=== PATIENT | male | born 1965 | race Caucasian/White ===

== ENCOUNTER 2018-03-13 20:02 | Emergency (ER) | payer OTHER ==
--- NOTE | 2018-03-13 21:30 | ED NECK/BACK PAIN COMPLAINT ---
History of Present Illness General Chief Complaint: Low Back Pain/Injury Stated Complaint: LOW BACK PAIN Source: patient Exam Limitations: no limitations Allergies Coded Allergies: No Known Allergies (03/13/18) Triage Note: PT JAIDEN FROM HOME, STATES HE WAS DONIG YARD WORK AND HAD LOW BACK PAIN THAT INCREASED IN INTENSITY, AND HAD TO LAY DOWN. PER EMS PT UNABLE TO AMBULATE FOR THEM. PT'S STATES SHE GAVE PT 1 TAB 500MG ROBAXIN. PT STATES PAIN 10/10 WITH MOVEMENT, AND 3/10 WHEN LAYING STILL Triage Nurses Notes Reviewed? yes Onset: Abrupt Duration: day(s): (1), constant, continues in ED, getting worse Timing: single episode today Quality/Severity: severe, sharpness Location: lumbar spine, paraspinous muscles Radiation: none Context: turning/bending Method of Injury: unknown Loss of Consciousness: no loss of consciousness Modifying Factors: movement Associated Symptoms: lower back pain HPI: 52-year-old male past medical history of hyperlipidemia presents for evaluation of low back pain. Patient states that he had been doing some yardwork moving sticks and branches in his yard today when he started noticing gradually worsening back pain. The pain got to the point where he was unable to move any lay down and is regarding cannot get up. He was brought in by ambulance. Patient reports pain located on both sides his lower back and does not radiate. The pain is worse with movement. He tried taking Robaxin without any improvement. He does report a previous history of back problems but nothing nearly this severe. There was no direct trauma no numbness no tingling or bowel or bladder dysfunction no abdominal pain no fever no chest pain no shortness of breath. Pain is significantly worse with movement. At rest pain is 3 out of 10 moving to 10 out of 10. (Chaim Covarrubias) Vital Signs & Intake/Output Vital Signs & Intake/Output Vital Signs Date Time Temp Pulse Resp B/P B/P Pulse O2 O2 Flow FiO2 Mean Ox Delivery Rate 03/13 2301 96.7 80 18 121/75 97 Room Air 03/13 2024 98.5 62 16 122/72 96 Room Air Reconcile Medications Diazepam (Valium) 2 MG TABLET 1 TAB PO BID PRN PAIN Methylprednisolone. (Medrol) 4 MG TAB.DS.PK 1 DP PO AD LUMBAR RADICULOPATHY 6 on day 1 then reduce by one tablet daily until gone Oxycodone HCl/Acetaminophen (Percocet 5-325 MG Tablet) 5 MG-325 MG TABLET 1 TAB PO BID PRN PAIN (Jeremie Chaudhari) Past History Travel History Traveled to [place] past 21 day No Medical History Any Pertinent Medical History? see below for history Neurological: NONE EENT: NONE Cardiovascular: hyperlipidemia Respiratory: NONE Gastrointestinal: NONE Hepatic: NONE Renal: NONE Musculoskeletal: NONE Psychiatric: NONE Endocrine: NONE Blood Disorders: NONE Cancer(s): NONE DIGITAL SALES ASSISTANT/Reproductive: NONE Surgical History Surgical History: non-contributory Psychosocial History What is your primary language Lao Tobacco Use: Never used ETOH Use: denies use Family History Hx Contributory? No (Chaim Covarrubias) Review of Systems Review of Systems Constitutional: Reports: no symptoms. Eyes: Reports: no symptoms. Ears, Nose, Throat, Mouth: Reports: no symptoms. Respiratory: Reports: no symptoms. Cardiovascular: Reports: no symptoms. Gastrointestinal/Abdominal: Reports: no symptoms. Musculoskeletal: Reports: back pain, muscle pain, muscle stiffness. Skin: Reports: no symptoms. Neurological/Psychological: Reports: no symptoms. All Other Systems: Reviewed and Negative (Chaim Covarrubias) Physical Exam Physical Exam General Appearance: well developed/nourished, no apparent distress, alert, awake , obese Head: atraumatic, normal appearance Eyes: Bilateral: normal appearance, PERRL, EOMI. Ears, Nose, Throat, Mouth: hearing grossly normal, moist mucous membrane Neck: normal inspection, supple, full range of motion Respiratory: normal breath sounds, chest non-tender, no respiratory distress, lungs clear Cardiovascular: regular rate/rhythm, normal peripheral pulses Peripheral Pulses: 2+ radial (R), 2+ radial (L) Gastrointestinal: soft, non-tender Back: normal inspection, decreased range of motion, lumbar spine and paraspinous muscles to palpation bilaterally no bruising swelling or abrasions or step-offs or deformities or rashes Extremities: normal range of motion Straight Leg Raising: Right: Pain at ____ degrees (45). Left: Pain at ____ degrees (45). DTR: Patellar: 2: L4 Right, L4 Left. Neurologic/Psych: no motor/sensory deficits, awake, alert, oriented x 3, normal mood/affect Skin: intact, normal color, warm/dry Core Measures CVA/TIA Diagnosis: No (Chaim Covarrubias) Progress Differential Diagnosis: AAA, cauda equina syn, herniated disc, myofascial strain , pyelo/UTI, sciatica, spinal cord inj, thoracic outlet syn, T/L spine injury, ureterolithiasis Plan of Care: Current Medications Sig/[place] Start time Last Medication Dose Stop Time Status Admin Ketorolac 30 MG ONCE ONE 03/13 2230 CAN Tromethamine 03/13 2231 (Toradol) Patient seen and evaluated. He is reporting low back pain after doing yard work. There is no direct trauma. The pain gradually got worse causing him to have to lay down and eventually was unable to ambulate without severe pain. Pain is located on both sides lower back and does not radiate. No signs of cauda equina. Patient was medicated initially with 6 mg of IM morphine and 60 of Toradol and was reassessed. He was still unable to really due to severe pain. A CT scan of the abdomen and pelvis with lumbar reconstruction ordered and patient was given 2 mg of IM Ativan. Patient signout to SUDHA GOODWIN pending reevaluation and CT scan. (Chaim Covarrubias) 2220 patient reports no improvement in symptoms with IM medication will place an IV, Tylenol morphine Ativan IV ordered pending a CAT scan 2320 I discussed with the patient and his family his CAT scan results a copy will be provided to him I advised close follow-up with his primary care prescriptions were sent to his pharmacy while the patient stood up with myself he became clammy, the patient sat down, after resting he reports to feeling improved his family feels comfortable with him going home at this time, the pain in his back is improved he is able to take steps here in the emergency room return precautions were discussed at length (Jeremie Chaudhari) (Chaim Covarrubias) Departure Departure Disposition: HOME OR SELF CARE Condition: Stable Clinical Impression Primary Impression: Low back pain Qualifiers: Chronicity: acute Back pain laterality: bilateral Sciatica presence : without sciatica Qualified Code: M54.5 - Low back pain Referrals: Genet MARTIN,Nicholas Raya (PCP/Family) Additional Instructions: Rest, avoid heavy lifting bending or excessive physical activity. Use ibuprofen 800 mg every 8 hours with food as needed for pain. Percocet and Valium as needed for severe pain only this may cause drowsiness. Make a follow-up appointment with your primary care doctor. Monitor symptoms return with any concerns. (Chaim Covarrubias) Departure Departure Forms: Customer Survey General Discharge Information Prescriptions: Current Visit Scripts Methylprednisolone. (Medrol) 1 DP PO AD #1 DP 6 on day 1 then reduce by one tablet daily until gone Diazepam (Valium) 1 TAB PO BID PRN PAIN #12 TAB Oxycodone HCl/Acetaminophen (Percocet 5-325 MG Tablet) 1 TAB PO BID PRN PAIN #10 TAB (Jeremie Chaudhari) PA/CHIEF DATA OFFICER Co-Sign Statement Statement: ED Attending supervision documentation- I saw and evaluated the patient. I have also reviewed all the pertinent lab results and diagnostic results. I agree with the findings and the plan of care as documented in the PA's/CHIEF DATA OFFICER's documentation. x I have reviewed the ED Record and agree with the PA's/CHIEF DATA OFFICER's documentation. [] Additions or exceptions (if any) to the PAs/CHIEF DATA OFFICER's note and plan are summarized below: [] (Dianne MARTIN,Mark)
[2018-03-13] MEDS ORDERED: PERCOCET 5-3251 EACH PO ×2 (21:35→23:15)
[2018-03-13] MEDS ORDERED: VALIUM5 M2 PO (21:35)
--- NOTE | 2018-03-13 22:50 | CT SCAN REPORT ---
EXAMINATION: CT LUMBAR SPINE WITHOUT CONTRAST CLINICAL INFORMATION: Low back pain doing yard work. COMPARISON: None TECHNIQUE: Axial images obtained through the lumbar spine. Coronal and sagittal reformatted images are performed at the CT scanner. DLP: 1368.5 mGy-cm FINDINGS: Lumbar vertebrae have normal height and alignment. No fracture or focal bone lesion. There are a few scattered calcifications of the wall of aorta and iliac vessels. There is no abdominal aortic aneurysm. The visualized portions of the kidneys and adrenal glands are unremarkable. There are small coarse calcifications in the central prostate. Prostate measures 3.5 cm transverse. SPINAL LEVELS: T12-L1: Normal. L1-L2: Normal. L2-L3: There is mild circumferential bulge of the annular fibers of the disc without focal disc protrusion. There is no central canal stenosis. The neural foramina are open. Facet joints are normal. L3-L4: There is mild circumferential bulge of the annular fibers of the disc without focal disc protrusion. There is moderate hypertrophy of the ligamentum flavum with mild central canal stenosis. Facet joints are normal. The neural foramina are open. L4-L5: There is mild circumferential bulge of annulus prior is a disc without focal disc protrusion. There is no central canal stenosis. The neural foramina open. Facet joints are normal. L5-S1: Normal. IMPRESSION: There is mild degenerative bulging of annular fibers at L2-L3 to L4-L5 without focal disc protrusion. There is mild central canal stenosis at L3-L4.
[2018-03-13 23:01] VITALS: BP 121/75
[2018-03-13] MEDS ORDERED: MEDROL4 M2 PO (23:14)
[2018-03-13] MEDS ORDERED: VALIUM2 M1 PO (23:15)
== END 2018-03-13 23:35 ==
LOC: ERH 20:02
DX: M54.5 Low back pain (principal)
CPT/HCPCS: 96372; 96374; 96375; J0131; J1885; J3101